=== PATIENT | male | born 1945 | race Caucasian/White ===

== ENCOUNTER 2020-12-25 10:22 | Outpatient (REF) | payer MEDICARE, SELFPAY ==
--- NOTE | ~2020-12-25 | XR_ITS ---
EXAMINATION: XR ANKLE, RIGHT XR ANKLE, LEFT CLINICAL INFORMATION: Ankle pain. COMPARISON: None. TECHNIQUE: AP, mortise, and lateral views of the right and left ankle. FINDINGS: Right Ankle: No acute fracture or dislocation. The ankle mortise is maintained. Small tibiotalar marginal osteophytes. Mild degenerative spurring at the dorsal midfoot. Joint space narrowing with marginal osteophytes at the posterior subtalar joint. Prominent plantar calcaneal spur. Mild circumferential soft tissue swelling. Left Ankle: No acute fracture or dislocation. Degenerative joint space narrowing with small marginal osteophytes. Severe posterior subtalar joint space narrowing with subchondral sclerosis, bony remodeling, and large marginal osteophytes. Plantar calcaneal spur. Mild circumferential soft tissue swelling. 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 Mild degenerative spurring at the dorsal midfoot. Plantar calcaneal spur. Circumferential soft tissue swelling. 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 Plantar calcaneal spur. Circumferential soft tissue swelling.
--- NOTE | ~2020-12-25 | XR_ITS ---
EXAMINATION: XR ANKLE, RIGHT XR ANKLE, LEFT CLINICAL INFORMATION: Ankle pain. COMPARISON: None. TECHNIQUE: AP, mortise, and lateral views of the right and left ankle. FINDINGS: Right Ankle: No acute fracture or dislocation. The ankle mortise is maintained. Small tibiotalar marginal osteophytes. Mild degenerative spurring at the dorsal midfoot. Joint space narrowing with marginal osteophytes at the posterior subtalar joint. Prominent plantar calcaneal spur. Mild circumferential soft tissue swelling. Left Ankle: No acute fracture or dislocation. Degenerative joint space narrowing with small marginal osteophytes. Severe posterior subtalar joint space narrowing with subchondral sclerosis, bony remodeling, and large marginal osteophytes. Plantar calcaneal spur. Mild circumferential soft tissue swelling. 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 Mild degenerative spurring at the dorsal midfoot. Plantar calcaneal spur. Circumferential soft tissue swelling. 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 Plantar calcaneal spur. Circumferential soft tissue swelling.
[2020-12-25 10:53] LABS: MANUAL DIFF FLAG NO
[2020-12-25 11:02] LABS: Basophils Absolute Auto 0.1 X10*3/uL (0.0-0.2); Basophils Percent Auto 0.7 % (0-2); Eosinophils Absolute Auto 0.4 X10*3/uL (0.0-0.4); Eosinophils Percent Auto 5.3 % (0-4); Hematocrit 51.5 % (42-52); Hemoglobin 17.6 g/dl (14.0-18.0); Imm Gran Abs Auto 0.02 X10*3/uL (0.00-0.03); Imm Gran Pct Auto 0.3 % (0.0-0.4); Lymphocytes Percent Auto 27.6 % (20-40); Mean Corpuscular HGB Conc 34.2 g/dl (31.0-36.0); Mean Corpuscular Hemoglobin 32.5 pg (27.0-33.0); Mean Platelet Volume 10.9 fL (9.4-12.4); Monocytes Absolute Auto 0.9 X10*3/uL (0.1-1.2); Monocytes Percent Auto 12.7 % (2-11); Neutrophils Percent Auto 53.4 % (45-73); Platelet Count 191 X10*3/uL (160-400); Red Blood Count 5.42 X10*6/uL (4.60-5.80); Red Cell Distribution Width 12.7 % (11.0-16.0); White Blood Count 7.4 X10*3/uL (4.8-10.8)
[2020-12-25 11:37] LABS: Alanine Aminotransferase 26 U/L (0-40); Albumin Level 3.9 g/dL (3.5-5.0); Alkaline Phosphatase 62 U/L (39-117); Anion Gap 13 (12-20); Aspartate Amino Transferase 21 U/L (5-37); Bilirubin Total 1.3 mg/dL (0.0-1.0); Blood Urea Nitrogen 11 mg/dL (9-16); Carbon Dioxide 26 mmol/L (22-29); Chloride 107 mmol/L (96-108); Cholesterol 190 mg/dL; Estimated Glomerular Filt Rate > 60; Glucose Fasting 115 mg/dL (60-99); HDL Cholesterol 44 mg/dL; LDL Cholesterol Calculated 113 mg/dl; Potassium 4.6 mmol/L (3.3-5.1); Sodium 141 mmol/L (135-145); Total Protein 6.9 g/dL (6.5-8.0); Triglycerides 168 mg/dL
[2020-12-25 11:43] LABS: Free T4 (Free Thyroxine) 0.77 ng/dL (0.71-1.85); Thyroid Stimulating Hormone 1.83 uIU/mL (0.32-4.0)
[2020-12-25 12:02] LABS: Folate 14.9 ng/mL (> or = 4.0); Vitamin B12 522 pg/mL (200-900)
== END 2020-12-25 10:23 | disposition home or self-care (01) ==
LOC: HO.LAB 10:22
PROVIDERS: PCP Internal Medicine; Visit Provider Internal Medicine
DX: Z12.5 Encounter for screening for malignant neoplasm of prostate (principal); M54.2 Cervicalgia; I48.91 Unspecified atrial fibrillation; I10 Essential (primary) hypertension; G62.9 Polyneuropathy, unspecified; K52.9 Noninfective gastroenteritis and colitis, unspecified; R35.1 Nocturia; M25.572 Pain in left ankle and joints of left foot; M25.571 Pain in right ankle and joints of right foot
CPT/HCPCS: 36415; 73610; 80053; 80061; 82607; 82746; 84153; 84439; 84443; 85025

== ENCOUNTER → 2021-01-13 10:27 | Outpatient (BNVA) | payer MEDICARE, SELFPAY | PROVIDERS: PCP Internal Medicine; Visit Provider Physician Assistant | DX: M19.072 Primary osteoarthritis, left ankle and foot (principal) | CPT/HCPCS: 99202 ==

== ENCOUNTER 2021-03-10 14:00 | Outpatient (RCR) | payer MEDICARE, SELFPAY ==
--- NOTE | 2021-02-02 11:34 | MHC.PT.EP ---
[facility] [place] Office [place] Office [place] Office [address] [phone] F: [phone] F: [phone] F: [phone] F: [phone] Physical Therapy Plan of Care Date of Evaluation: Date of Surgery: NA Diagnosis: LEFT FOOT AND ANKLE Assessment: Rasheed is a pleasant 75 yo gentleman who presents with increasing foot and ankle pain along with peripheral neuropathy. Upon exam he demostrates decreased foot and ankle mobility, decreased strength of ankle stabilizers and foot intrinsics, altered gait pattern and decreased balance. Upon exam he demonstrates altered posture and positoning of foot and ankle, decreased ability to perform standing and walking activities, decreased ability to perform stairs, decreased ability to participate in recreational and community activities. A pt is a good candidate for skilled PT due to age, potential remediation of impairments, typical disease/condition progression and prognosis, comorbidities, and motivation. pt would benefit from tailored program of therapeutic activities, functional training, gait training, postural education, neuromuscular re-education, and modalities as needed. Frequency and Duration: The patient will be seen 2 x week for 4 weeks Short Term Goals: initiate HEP and promote self management of symptoms in 2 weeks [employer] Goals: IN 6 WEEKS: TO DEMONSTRATE FULL ANKLE ROM, EQUAL ISIAH TO DEMONSTRATE FULL LE STRENGTH, EQUAL ISIAH TO ASCEND AND DESCEND STAIRS WITHOUT PAIN GREATER THAN 2/10 TO AMBULATE AD YOLANDA ON LEVEL AND UNEVEN SURFACES FOR FITNESS WITHOUT PAIN GREATER THAN 2/10 Treatment Plan: Modalities to reduce pain, spasms and effusion. Manual therapy to restore motion and function. Therapeutic exercise to improve strength and flexibility. Neuromuscular re-education for posture and balance. Therapeutic activities to return to functional activities of daily living. Electronically signed by: KRISTA HANSEN PT, DPT Please sign and return to therapist. Thank you for your referral.
--- NOTE | 2021-03-10 14:47 | MHC.PT.DC ---
[facility] [place] Office [place] Office [place] Office [address] M[address] [phone] F: [phone] F: [phone] F: [phone] F: [phone] Physical Therapy Discharge Report Diagnosis: LEFT FOOT AND ANKLE Date of Surgery: NA Date of Evaluation: 01/30/21 Date of Discharge: 03/10/21 Treatments to Date: 9 Cancellations to Date: 1 No Shows to Date: 0 Discharge Status: Achieved Goals Improved Function Independent with HEP Discharge Summary: feels confident with HEP and self management of symptoms. He will be leaving for vacation in a few weeks and feels confident with DC on this date Electronically signed by: Krista Tesfaye PT, DPT Please sign and return to therapist. Thank you for your referral.
== END 2021-03-10 14:48 | disposition home or self-care (01) ==
LOC: HO.PT 14:00
PROVIDERS: PCP Internal Medicine; Visit Provider Physician Assistant
DX: M19.072 Primary osteoarthritis, left ankle and foot (principal)
CPT/HCPCS: 97035; 97110; 97140; 97162

== ENCOUNTER 2021-09-09 06:28 | Day surgery (SDC) | payer MEDICARE, SELFPAY ==
[2021-09-03 11:00] VITALS: BMI 45.8
--- NOTE | 2021-09-08 12:35 | P.CONAN_ITS ---
Documented by User: Suzette Barton NP 09/08/21 12:39 HPI - Anesthesia Eval Consult details Narrative: 76yo M for Colonoscopy PMFSH Active Problems Active Problems: All Active Problems (Updated 09/03/21 @ 11:00 by Laura Mackey RN) Osteoarthritis of ankle, left (Acute) Past Medical History Medical History (Updated 09/03/21 @ 11:00 by Laura Mackey RN) Anomalous pulmonary venous drainage Atrial fibrillation Fracture of phalanx of right ring finger Neuropathy Surgical History Surgical History (Updated 09/03/21 @ 10:51 by Laura Mackey RN) H/O colonoscopy History of bilateral knee replacement History of hernia surgery History of repair of hiatal hernia Hx of Achilles tendon repair Social History Social History (Updated 09/03/21 @ 10:51 by Laura Mackey RN) Are you a primary rental boats caretaker to a significant other at home: No Do you presently have visiting nurse or other home services: No Patient Tobacco Use Status: Never used Tobacco Use of substances other than those prescribed or required for medical reasons: No Have you been hit, kicked, punched, or otherwise hurt by someone within the past year? If so, by whom?: No Are you DNR?: No Advance Directives Information Provided: Yes (brochure mailed) Advance Directives on File: No Recently lost weight without trying: No Eating poorly because of decreased appetite: No Nutrition Risks: Surgical patient >75years Current occupational status: retired Current occupation: rt handed Meds Allergies Allergy/AdvReac Type Severity Reaction Status Date / Time No Known Allergies Allergy Unverified 12/27/19 15:09 [No Known Allergies*] Home Medications Medication Instructions Recorded Confirmed Last Taken Type brimonidine 0.2 % eye drops 1 drp BID 09/03/21 09/09/21 Unknown History metoprolol tartrate 50 mg tablet 1 tab PO BID 09/03/21 09/09/21 09/09/21 History Exam Exam Date and Time: September 08, 2021 1235 Height,Weight and Vital Signs: Height 6 ft Weight 153.314 kg Assessment and Plan Assessment Anesthesia Assessment: Chart Reviewed Documented by User: Amaris Calixto MD 09/09/21 07:43 PMF Active Problems Active Problems: All Active Problems (Updated 09/03/21 @ 11:00 by Laura Mackey RN) Osteoarthritis of ankle, left (Acute) Snores but never tested for KALI Past Medical History Medical History (Updated 09/03/21 @ 11:00 by Laura Mackey RN) Anomalous pulmonary venous drainage Atrial fibrillation Fracture of phalanx of right ring finger Neuropathy Family History Family history of problems with anesthesia: No Surgical History Surgical History (Updated 09/03/21 @ 10:51 by Laura Mackey RN) H/O colonoscopy History of bilateral knee replacement History of hernia surgery History of repair of hiatal hernia Hx of Achilles tendon repair History of Problems with Anesthesia: No Social History Social History (Updated 09/03/21 @ 10:51 by Laura Mackey RN) Are you a primary rental boats caretaker to a significant other at home: No Do you presently have visiting nurse or other home services: No Patient Tobacco Use Status: Never used Tobacco Use of substances other than those prescribed or required for medical reasons: No Have you been hit, kicked, punched, or otherwise hurt by someone within the past year? If so, by whom?: No Are you DNR?: No Advance Directives Information Provided: Yes (brochure mailed) Advance Directives on File: No Recently lost weight without trying: No Eating poorly because of decreased appetite: No Nutrition Risks: Surgical patient >75years Current occupational status: retired Current occupation: rt handed Meds Allergies Allergy/AdvReac Type Severity Reaction Status Date / Time No Known Allergies Allergy Unverified 12/27/19 15:09 [No Known Allergies*] Home Medications Medication Instructions Recorded Confirmed Last Taken Type brimonidine 0.2 % eye drops 1 drp BID 09/03/21 09/09/21 Unknown History metoprolol tartrate 50 mg tablet 1 tab PO BID 09/03/21 09/09/21 09/09/21 History Exam Height,Weight and Vital Signs: Height 6 ft Weight 153.314 kg Vital Signs Temp Pulse Resp BP Pulse Ox 09/09/21 07:15 97.0 F 93 18 158/90 H 96 Airway Mallampati Class: III TM Dist: >3cm Neck ROM: Full Loose/Missing/Broken Teeth: No Heart: Irregularly irregular Lungs: CTAB Assessment and Plan Assessment Anesthesia Assessment: Anesthesia Plan Discussed Final Anesthetic Review Family History of Problems with Anesthesia: No History of Problems with Anesthesia: No NPO: Yes ASA Class: III Final Preanesthetic Review: No Changes in Pt Med Stat, Meds/Allgs Chart Reviewed, Consent Obtained/Reviewed and Anes Risks/Benef Reviewed Patient Risk: Intermediate Procedure Risk: Low Assessment/Block/Sedation in SS: Assess/Block/Sedation-SS Anesthetic Plan Anesthetic Plan: GA and MAC: Disposition: Standard PACU
[2021-09-09 07:15] VITALS: BP 158/90; PULSE 93; RESP 18; TEMP 36.1; O2SAT 96
[2021-09-09] MEDS: Lactated Ringers 1,000 ML 100 ML IVCONT (07:18)
--- NOTE | 2021-09-09 09:04 | PM.OP ---
Brief Operative Note Date of Service: 09/09/21 Pre-op diagnosis: Screening Post-op diagnosis: other (Colon polyps) Procedure: Colonoscopy to the cecum with bx/removal of appendiceal orifice polyp, hot snare polypectomy x 3, and placement of 1 Resolution clip at 50cm Surgeon: Pollo Lo Anesthesia: MAC Was an Dye Colorist Formulator used for this Procedure?: No Estimated blood loss (mL): 2.0 Pathology: other (A. Appendiceal orifice polyp B.Transverse colon polyp C. Polyps at 50cm) Condition: stable Disposition: PACU
[2021-09-09 09:08] VITALS: BP 127/81; PULSE 114; RESP 18; TEMP 36.1; O2SAT 95
[2021-09-09 09:13] VITALS: BP 110/57; PULSE 110; RESP 18; O2SAT 96
[2021-09-09 09:18] VITALS: BP 95/55; PULSE 108; RESP 16; O2SAT 95
[2021-09-09 09:23] VITALS: BP 108/68; PULSE 106; RESP 18; O2SAT 93
[2021-09-09 09:38] VITALS: BP 108/72; PULSE 96; RESP 18; TEMP 36.1; O2SAT 94
--- NOTE | 2021-09-09 10:47 | OP_ITS ---
SURGEON: Pollo Lo MD INDICATIONS: The patient presents for evaluation of colorectal cancer screening and prior history of tubular adenoma of the colon. Full consent was obtained from him for this, including risks of bleeding and perforation. PREOPERATIVE DIAGNOSIS: POSTOPERATIVE DIAGNOSIS: PROCEDURE PERFORMED: Colonoscopy to the cecum with biopsy and removal of polyp,, and hot snare polypectomy with placement of 1 Resolution clip. ESTIMATED BLOOD LOSS: COMPLICATIONS: ANESTHESIA: Monitored anesthesia care. ASSISTANTS: SPECIMENS: PREOPERATIVE DIAGNOSES: Colorectal cancer screening, personal history of tubular adenoma of the colon, family history of colon cancer. POSTOPERATIVE DIAGNOSES: Colorectal cancer screening, personal history of tubular adenoma of the colon, family history of colon cancer, colon polyps, diverticulosis and internal hemorrhoids. DESCRIPTION OF PROCEDURE: The patient was placed in the left lateral decubitus position. The digital rectal exam revealed no abnormalities. The [employer] video pediatric colonoscope was entered into the rectum and advanced to the cecum. Once in the cecum, I did identify cecal pouch with appendiceal orifice and a normal-appearing ileocecal valve. The ileocecal valve appeared normal. The entire cecum was well visualized. In the appendiceal orifice was a flat several mm polypoid lesion, which was biopsied twice with cold biopsy forceps and removed. The remainder of the cecum appeared normal. The scope was then slowly withdrawn assessing all mucosal surfaces carefully. Preparation was excellent. In the transverse colon was an approximately 6 to 8 mm polyp, which was removed with hot snare polypectomy and recovered by suction. The polypectomy site appeared clean, without any sign of residual polyp nor bleeding. At 50 cm were 2 polyps between 8 and 10 mm, which were both removed by hot snare polypectomy. One was recovered by suction and the other was recovered by withdrawing on the tip of the scope. They were placed in the same container. The scope was advanced back to the polypectomy site. Both polypectomy sites appeared clean, without any sign of residual polyp nor bleeding, although I did place 1 Resolution clip on 1 of the polypectomy sites with good deployment and good hemostasis. I did not visualize any other polyps, colitis, or angiodysplasia. There was a mild amount of sigmoid diverticulosis. In the rectum, the scope was retroflexed visualizing small internal hemorrhoids, but no other pathology. The rectal mucosa appeared normal. The scope was straightened and withdrawn from the patient. He tolerated the procedure well and was returned to the recovery area in stable condition. IMPRESSION: 1. Colon polyps. 2. Diverticulosis. 3. Internal hemorrhoids. PLAN: The results of the pathology will be checked. Given his age and today's relatively minimal findings, I do not think he will need any further screening colonoscopies in the future. He was advised not to use any aspirin and NSAIDs for 1 week. He will otherwise see me on a p.r.n. basis. Of note, for future reference, his airway and respiratory status were well- maintained by the anesthesia staff during this MAC case. However, at times it was quite challenging due to his anatomy. Therefore, I would recommend General Anesthesia be used if he were to need any further GI procedures. The anesthesia staff agreed with this assessment as well. MD TOMMY Kovacs/ROBERTA / [id number] MTDD
== END 2021-09-09 10:40 | disposition home or self-care (01) ==
PROVIDERS: PCP Internal Medicine; Visit Provider Internal Medicine
PROC: 0DJD8ZZ Inspection of Lower Intestinal Tract, Via Natural or Artificial Opening Endoscopic (ICD-10-PCS; CPT 45378; principal; 2021-09-09 07:30)
DX: Z12.11 Encounter for screening for malignant neoplasm of colon (principal); Z86.010 Personal history of colon polyps; Z80.0 Family history of malignant neoplasm of digestive organs; D12.3 Benign neoplasm of transverse colon; D12.5 Benign neoplasm of sigmoid colon; K51.40 Inflammatory polyps of colon without complications; K57.30 Diverticulosis of large intestine without perforation or abscess without bleeding; K64.8 Other hemorrhoids; G57.90 Unspecified mononeuropathy of unspecified lower limb; I48.91 Unspecified atrial fibrillation; Z79.899 Other long term (current) drug therapy; Z96.653 Presence of artificial knee joint, bilateral
CPT/HCPCS: 45385; 45380; 88305; J2250; J2370; J2765

== ENCOUNTER 2022-08-23 09:14 | Outpatient (REF) | payer MEDICARE, SELFPAY ==
[2022-08-23 09:39] LABS: MANUAL DIFF FLAG NO
[2022-08-23 10:16] LABS: Basophils Absolute Auto 0.1 X10*3/uL (0.0-0.2); Basophils Percent Auto 1.1 % (0-2); Eosinophils Absolute Auto 0.3 X10*3/uL (0.0-0.4); Eosinophils Percent Auto 4.8 % (0-4); Hematocrit 49.9 % (42.0-52.0); Hemoglobin 17.2 g/dl (14.0-18.0); Imm Gran Abs Auto 0.02 X10*3/uL (0.00-0.03); Imm Gran Pct Auto 0.3 % (0.0-0.4); Lymphocytes Absolute Auto 1.3 X10*3/uL (1.2-4.9); Lymphocytes Percent Auto 21.5 % (20-40); Mean Corpuscular HGB Conc 34.5 g/dl (31.0-36.0); Mean Corpuscular Hemoglobin 32.8 pg (27.0-33.0); Mean Platelet Volume 10.9 fL (9.4-12.4); Monocytes Absolute Auto 0.8 X10*3/uL (0.1-1.2); Monocytes Percent Auto 13.1 % (2-11); Neutrophils Absolute Auto 3.7 x10*3/uL (2.0-8.3); Neutrophils Percent Auto 59.2 % (45-73); Platelet Count 160 X10*3/uL (160-400); Red Blood Count 5.25 X10*6/uL (4.60-5.80); Red Cell Distribution Width 13.3 % (11.0-16.0); White Blood Count 6.2 X10*3/uL (4.8-10.8)
[2022-08-23 10:39] LABS: Estimated Average Glucose 117 mg/dL; Hemoglobin A1c % 5.7 %
[2022-08-23 10:59] LABS: Alanine Aminotransferase 21 U/L (0-40); Albumin Level 3.5 g/dL (3.5-5.0); Alkaline Phosphatase 68 U/L (39-117); Anion Gap 14 (12-20); Aspartate Amino Transferase 16 U/L (5-37); Bilirubin Total 0.9 mg/dL (0.0-1.0); Blood Urea Nitrogen 12 mg/dL (9-16); Calcium 8.9 mg/dL (8.4-10.2); Carbon Dioxide 25 mmol/L (22-29); Chloride 106 mmol/L (96-108); Cholesterol 179 mg/dL; Estimated Glomerular Filt Rate > 60; Glucose Random 99 mg/dL (60-115); HDL Cholesterol 43 mg/dL; LDL Cholesterol Calculated 103 mg/dl; Potassium 4.5 mmol/L (3.3-5.1); Sodium 140 mmol/L (135-145); Total Protein 6.4 g/dL (6.5-8.0); Triglycerides 168 mg/dL
[2022-08-23 11:28] LABS: Folate 7.4 ng/mL (> or = 4.0); Prostate Specific Antigen 0.89 ng/mL (<0.05-4.0); Vitamin B12 461 pg/mL (200-900)
[2022-08-23 11:34] LABS: Appearance Urine Clear; Color Urine Yellow; Glucose Urine UA Negative (Negative); Leukocyte Esterase Urine Negative (Negative); Nitrite Urine Negative (Negative); Specific Gravity - Urine 1.015 (1.005-1.025); UMIC TRIGGER UA YES; Urine Blood Trace (Negative); Urine Ketones Negative (Negative); Urine Protein Trace mg/dL (Neg-Trace)
[2022-08-23 11:37] LABS: Bacteria Urine None Seen (None Seen); Hyaline Casts Urine 0-2 /LPF (0-2); RBC Urine 0-2 /HPF (0-2); Squamous Epithelial Cell Urine 0-2 /HPF (0-2); WBC Urine 0-5 /HPF (0-5)
[2022-08-23 12:02] LABS: Creatinine Urine 109.88 mg/dL; Microalbum/Creatinine Ratio Ur 66.4 ug/mg cr
== END 2022-08-23 09:15 | disposition home or self-care (01) ==
LOC: HO.LAB 09:14
PROVIDERS: PCP Internal Medicine; Visit Provider Internal Medicine
DX: Z12.5 Encounter for screening for malignant neoplasm of prostate (principal); I48.91 Unspecified atrial fibrillation; R73.03 Prediabetes; M19.90 Unspecified osteoarthritis, unspecified site; R35.1 Nocturia; G62.9 Polyneuropathy, unspecified
CPT/HCPCS: 36415; 80053; 80061; 81001; 82043; 82607; 82746; 83036; 84153; 85025

== ENCOUNTER 2022-11-22 10:48 | Outpatient (REF) | payer MEDICARE, SELFPAY ==
[2022-11-22 11:17] LABS: MANUAL DIFF FLAG NO
[2022-11-22 11:25] LABS: Basophils Absolute Auto 0.1 X10*3/uL (0.0-0.2); Eosinophils Absolute Auto 0.4 X10*3/uL (0.0-0.4); Eosinophils Percent Auto 5.7 % (0-4); Hematocrit 48.3 % (42.0-52.0); Hemoglobin 16.8 g/dl (14.0-18.0); Imm Gran Abs Auto 0.03 X10*3/uL (0.00-0.03); Imm Gran Pct Auto 0.4 % (0.0-0.4); Lymphocytes Absolute Auto 1.8 X10*3/uL (1.2-4.9); Lymphocytes Percent Auto 25.3 % (20-40); Mean Corpuscular HGB Conc 34.8 g/dl (31.0-36.0); Mean Corpuscular Hemoglobin 33.3 pg (27.0-33.0); Mean Corpuscular Volume 95.8 fL (80.0-98.0); Mean Platelet Volume 10.9 fL (9.4-12.4); Monocytes Percent Auto 14.5 % (2-11); Neutrophils Absolute Auto 3.7 x10*3/uL (2.0-8.3); Neutrophils Percent Auto 53.1 % (45-73); Platelet Count 173 X10*3/uL (160-400); Red Blood Count 5.04 X10*6/uL (4.60-5.80); Red Cell Distribution Width 12.7 % (11.0-16.0)
[2022-11-22 11:52] LABS: Estimated Average Glucose 120 mg/dL; Hemoglobin A1c % 5.8 %
[2022-11-22 11:55] LABS: Alanine Aminotransferase 30 U/L (0-40); Albumin Level 3.4 g/dL (3.5-5.0); Alkaline Phosphatase 55 U/L (39-117); Anion Gap 10 (12-20); Aspartate Amino Transferase 26 U/L (5-37); Bilirubin Total 0.6 mg/dL (0.0-1.0); Blood Urea Nitrogen 14 mg/dL (9-16); Calcium 9.2 mg/dL (8.4-10.2); Carbon Dioxide 27 mmol/L (22-29); Chloride 107 mmol/L (96-108); Estimated Glomerular Filt Rate > 60; Glucose Random 102 mg/dL (60-115); Magnesium 1.9 mg/dL (1.6-2.6); Potassium 4.5 mmol/L (3.3-5.1); Sodium 139 mmol/L (135-145); Total Protein 6.9 g/dL (6.5-8.0)
== END 2022-11-22 10:49 | disposition home or self-care (01) ==
LOC: HO.10HDL 10:48
PROVIDERS: Visit Provider Internal Medicine
DX: I48.91 Unspecified atrial fibrillation (principal); R73.03 Prediabetes; M19.90 Unspecified osteoarthritis, unspecified site; D72.820 Lymphocytosis (symptomatic)
CPT/HCPCS: 36415; 80053; 83036; 83735; 85025

== ENCOUNTER 2023-02-24 10:36 | Outpatient (REF) | payer MEDICARE, SELFPAY ==
--- NOTE | ~2023-02-24 | XR_ITS ---
EXAMINATION: XR ANKLE, LEFT CLINICAL INFORMATION: Pain. COMPARISON: Radiographs dated 12/25/2020. TECHNIQUE: AP, lateral, and mortise views of the left ankle. FINDINGS: There is bony demineralization. The ankle mortise is intact. No fracture, dislocation or left ankle joint effusion is seen. Boehler's angle is normal. There is a moderate plantar calcaneal spur. There is mild generalized soft tissue swelling of the ankle, without gas or foreign body noted. There are atherosclerotic calcifications. XR/XR ankle LT min 3V IMPRESSION: 1. No left ankle fracture, dislocation or joint effusion is seen. 2. There is mild generalized soft tissue swelling. 3. There is a moderate plantar calcaneal spur.
== END 2023-02-24 10:37 | disposition home or self-care (01) ==
LOC: HO.XRAY 10:36
PROVIDERS: PCP Internal Medicine; Visit Provider Internal Medicine
DX: M25.572 Pain in left ankle and joints of left foot (principal)
CPT/HCPCS: 73610

== ENCOUNTER 2023-09-08 08:37 | Outpatient (REF) | payer MEDICARE, SELFPAY ==
[2023-09-08 08:56] LABS: MANUAL DIFF FLAG NO
[2023-09-08 09:28] LABS: Appearance Urine Clear; Color Urine Yellow; Glucose Urine UA Negative (Negative); Leukocyte Esterase Urine Negative (Negative); Nitrite Urine Negative (Negative); Urine Blood Negative (Negative); Urine Ketones Negative (Negative); Urine Protein Negative (Neg-Trace)
[2023-09-08 09:30] LABS: Basophils Absolute Auto 0.1 X10*3/uL (0.0-0.2); Basophils Percent Auto 0.9 % (0-2); Eosinophils Absolute Auto 0.3 X10*3/uL (0.0-0.4); Eosinophils Percent Auto 5.5 % (0-4); Hemoglobin 17.1 g/dl (14.0-18.0); Imm Gran Abs Auto 0.05 X10*3/uL (0.00-0.03); Imm Gran Pct Auto 0.9 % (0.0-0.4); Lymphocytes Absolute Auto 1.6 X10*3/uL (1.2-4.9); Lymphocytes Percent Auto 27.6 % (20-40); Mean Corpuscular HGB Conc 34.2 g/dl (31.0-36.0); Mean Corpuscular Hemoglobin 32.9 pg (27.0-33.0); Mean Corpuscular Volume 96.2 fL (80.0-98.0); Mean Platelet Volume 11.4 fL (9.4-12.4); Monocytes Absolute Auto 0.7 X10*3/uL (0.1-1.2); Monocytes Percent Auto 11.8 % (2-11); Neutrophils Absolute Auto 3.1 x10*3/uL (2.0-8.3); Neutrophils Percent Auto 53.3 % (45-73); Platelet Count 165 X10*3/uL (160-400); Red Cell Distribution Width 12.6 % (11.0-16.0); White Blood Count 5.8 X10*3/uL (4.8-10.8)
[2023-09-08 09:56] LABS: Estimated Average Glucose 131 mg/dL; Hemoglobin A1c % 6.2 % (<6.0)
[2023-09-08 10:01] LABS: Creatinine Urine 132.06 mg/dL; Microalbum/Creatinine Ratio Ur 21.2 ug/mg cr (<30)
[2023-09-08 10:03] LABS: Alanine Aminotransferase 24 U/L (0-40); Albumin Level 3.6 g/dL (3.5-5.0); Alkaline Phosphatase 60 U/L (39-117); Anion Gap 13 (12-20); Aspartate Amino Transferase 18 U/L (5-37); Bilirubin Total 0.8 mg/dL (0.0-1.0); Blood Urea Nitrogen 10 mg/dL (9-16); Calcium 8.7 mg/dL (8.4-10.2); Carbon Dioxide 27 mmol/L (22-29); Chloride 106 mmol/L (96-108); Cholesterol 188 mg/dL (<200); Estimated Glomerular Filt Rate > 60; Glucose Fasting 107 mg/dL (60-99); HDL Cholesterol 47 mg/dL (>40); LDL Cholesterol Calculated 101 mg/dL (<100); Potassium 4.5 mmol/L (3.3-5.1); Sodium 141 mmol/L (135-145); Total Protein 6.9 g/dL (6.5-8.0); Triglycerides 201 mg/dL (<150)
[2023-09-08 10:13] LABS: Prostate Specific Antigen 1.05 ng/mL (<0.05-4.0)
== END 2023-09-08 08:38 | disposition home or self-care (01) ==
LOC: HO.LAB 08:37
PROVIDERS: PCP Internal Medicine; Visit Provider Internal Medicine
DX: I48.91 Unspecified atrial fibrillation (principal); I10 Essential (primary) hypertension; N40.0 Benign prostatic hyperplasia without lower urinary tract symptoms; E11.9 Type 2 diabetes mellitus without complications; Z12.5 Encounter for screening for malignant neoplasm of prostate
CPT/HCPCS: 36415; 80053; 80061; 81003; 82043; 82570; 83036; 84153; 85025

== ENCOUNTER 2024-09-12 11:25 | Outpatient (AMB) | payer MEDICARE, SELFPAY ==
--- NOTE | 2024-09-12 10:32 | A.OFFPC_ITS ---
Vital Signs 09/12/24 11:33 Height 6 ft Weight 234 lb BMI 31.7 BP 130/82 Blood Pressure Location Lt brachial Position Sitting Pulse 77 Pulse Source Pulse Oximeter Temp 97 F Temp Source Axillary Pulse Oximetry (%) 96 Oxygen Delivery Method Room Air Intake Visit Reasons: Routine Mental Health Coordinator Required: No Accompanied by: Self / Same As Patient Allergies No Known Allergies [No Known Allergies*] Allergy (Verified 09/12/24 10:32) Tobacco use date assessed: 09/12/24 Fall risk assessment: 1 Fall in past year Last assessed Fall Risk: 09/12/24 Dental Screening Dental Screen Date: 09/12/24 Did you have a dental visit in the last 12 months?: Yes Did you have a dental problem in the last 6 months where you did not have access to dental care?: No [facility] Medical History (Updated 09/12/24 @ 11:51 by Thee Delacruz MD) Obesity (BMI 35.0-39.9 without comorbidity) Atrial fibrillation Neuropathy Anomalous pulmonary venous drainage Fracture of phalanx of right ring finger Surgical History History of repair of hiatal hernia Hx of Achilles tendon repair H/O colonoscopy (~09/09/21) History of hernia surgery History of bilateral knee replacement Family History (Updated 09/12/24 @ 11:38 by Lynette Butts MA) Mother No problems noted. Father No problems noted. Social History Housing: House Are you a primary home health care worker to a significant other at home: No Do you presently have visiting nurse or other home services: No Patient Tobacco Use Status: Never used Tobacco e-Cigarette/Vaping Use: Never Used service: No Current occupational status: retired Current occupation: rt handed Cognitive needs: No Hearing needs: No Vision needs: Yes (rx glasses) Questionnaire PHQ-9 Over the last 2 weeks, how often have you been bothered by any of the following problems? 1. Little interest or pleasure in doing things: not at all 2. Feeling down, depressed, or hopeless: not at all 3. Trouble falling or staying asleep, or sleeping too much: not at all 4. Feeling tired or having little energy: not at all 5. Poor appetite or overeating: not at all 6. Feeling bad about yourself - or that you are a failure or have let yourself or your family down: not at all 7. Trouble concentrating on things, such as reading the newspaper or watching television: not at all 8. Moving or speaking so slowly that other people could have noticed. Or the opposite - being so fidgety or restless that you have been moving around a lot more than usual: not at all 9. Thoughts that you would be better off or of hurting yourself in some way: not at all Total score: 0 Source: Developed by Drs. Pollo Hunt, Niyah Back, Prasanth Becerril and colleagues, with an educational meme from [employer]. Thrive Questionnaire Date Thrive assessed: 09/12/24 I am a: Patient Within the past 12 months, did the food you bought not last and you didn't have the money to get more?: Never true Within the past 12 months, did you worry whether your food would run out before you got money to buy more?: Never true Do you have trouble paying for medicines?: No Do you have trouble getting transportation to medical appointments?: No Do you have trouble paying your heating and electricity bill?: No Do you have trouble taking care of your child, family member or friend?: No Do you have trouble with day-to-day activities such as bathing, preparing meals, shopping, managing finances, etc.?: No Are you currently unemployed and looking for a job?: No Are you interested in more education?: No THRIVE Score: 0 AUDIT C Alcohol Use Questionnaire (AUDIT-C) 1. How often do you have a drink containing alcohol?: Monthly or less 2. How many drinks containing alcohol do you have on a typical day when you are drinking?: 1 or 2 3. How often do you have six or more drinks on one occasion?: Less than monthly Total Score: 2 NOLAN-7 AMB Questionnaire NOLAN-7 Date NOLAN - 7 assessed: 09/12/24 Feeling nervous, anxious, or on edge: 0 = Not at all Not being able to stop or control worryin = Not at all Worrying too much about different things: 0 = Not at all Trouble relaxin = Not at all Being so restless that it is hard to sit still: 0 = Not at all Becoming easily annoyed or irritable: 0 = Not at all Feeling afraid as if something awful might happen: 0 = Not at all Total NOLAN-7 score (0-4 normal; 5-9 mild; 10-14 moderate; 15-21 severe): 0 Source: Developed by Drs. Pollo Hunt, Niyah Back, Prasanth Becerril and colleagues, with an educational meme from [employer]. Physical exam (Primary Care) Vital Signs: Last Vital Signs Temp 97 F 09/12/24 11:33 Pulse 77 09/12/24 11:33 BP 130/82 09/12/24 11:33 Pulse Ox 96 09/12/24 11:33 Oxygen Delivery Method Room Air 09/12/24 11:33 BMI result Body Mass Index 31.7 Tobacco/Smoking Status: Tobacco use Status Tobacco use date assessed 09/12/24 09/12/24 10:34 Patient Tobacco Use Status Never used Tobacco 09/12/24 10:32 e-Cigarette/Vaping Use Never Used 09/12/24 10:34 PHQ-9: PHQ-9 Score PHQ-9: Total score 0 09/12/24 11:38 Thrive Assessment: Date of Thrive Assessment Date Thrive assessed 09/12/24 09/12/24 10:34 Coding Level of Care Code New Pt Level 4 (24136) Complex EM visit Add On G2211 Diagnoses Atrial fibrillation I48.91 Obesity (BMI 35.0-39.9 without comorbidity) E66.9 Assessment & Plan Assessment & Plan (1) Atrial fibrillation: Code(s): I48.91 - Unspecified atrial fibrillation Category: Medical Plan: on blood thinner and beta melissa (2) Obesity (BMI 35.0-39.9 without comorbidity): Code(s): E66.9 - Obesity, unspecified Category: Medical Plan: Counselling on diet and exercise done Plan History of Present Illness - The patient is a 79-year-old male presenting with concerns about obesity and urinary symptoms. - Reports issues with weight contributing to discomfort in knees, linked to past bilateral knee replacements. Surgery occurred about eight or nine years ago. - Historically active, now less so for the past decade, aware of the necessity to lose weight. - Experiences increased frequency and urgency of urination, particularly during the day, with limited output; rises at night two times for urination. - Has noted previously elevated blood glucose levels. - Currently on metoprolol and Eliquis for hypertension and atrial fibrillation. - Regularly consults early breastfeeding care specialist and barometers calibrator. - Daily consumption of wine is noted, specifically two glasses with dinner. 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 - Reports a significant decrease in physical activity over the last ten years. - Never smoked; does drink wine nightly, typically two glasses with his meal. Review of Systems - Genitourinary: Reports increased frequency and urgency of urination, with limited volume and nighttime awakening for urination. - Musculoskeletal: Denies knee pain but experiences discomfort associated with weight. - Cardiovascular: Reports history of atrial fibrillation and hypertension. - Endocrine: Reports previous elevation in blood glucose levels. Physical Exam General: Cooperative and healthy appearing Nutritional Appearance: Well nourished Orientation/consciousness: Patient oriented x3 Limitations: No limitations Head: Normal to inspection General: Appearance normal, both eyes and all related structures Neck: Normal visual inspection Chest: Normal palpation of entire chest wall Respiratory: Normal respiratory effort Neurology: Patient oriented x3 Results - Labs: Previous elevated blood glucose levels Plan 1. Obesity - Increase physical activity if comfortable. - Adjust diet for weight management. 2. Peripheral Neuropathy - Maintain podiatric follow-up. 3. Benign Prostatic Hyperplasia - Check PSA levels. 4. Urinary Frequency/Urgency - Assess potential causes, including BPH and glucose levels. 5. Atrial Fibrillation - Maintain Eliquis regimen. 6. Essential Hypertension - Continue metoprolol therapy. 7. Status Post Knee Replacements - Monitor for discomfort. Discussion Notes I discussed with Mr. Freitas his primary concerns regarding weight management and urinary symptoms. We explored the possibility that his BPH and slightly elevated sugar levels might contribute to his urinary frequency and urgency. I recommended checking his PSA levels and retesting his glucose. We talked about increasing his physical activity gradually to avoid discomfort in his knees, attributed partly to his obesity and history of replacements. We will continue his current medications, including Eliquis and Metoprolol. I confirmed no additional refills were necessary at this time and discussed the management strategies should any complications arise. Patient Instructions - Increase your physical activity as much as is comfortable with your knees. - Look at your diet and try to make healthy choices to help lose weight. - Continue taking your medications as prescribed. - Follow up for blood work and PSA test as planned. - Pay attention to any changes in your urination patterns and report any new symptoms. - Come back for a follow-up visit in six months or sooner if needed. Orders: Orders Lipid Panel Today E66.9 - Obesity, unspecified, I48.91 - Unspecified atrial fibrillation Complete Blood Count no Diff Today E66.9 - Obesity, unspecified, I48.91 - Unspecified atrial fibrillation Hemoglobin A1c Today E66.9 - Obesity, unspecified, I48.91 - Unspecified atrial fibrillation Liver Panel Today E66.9 - Obesity, unspecified, I48.91 - Unspecified atrial fibrillation Basic Metabolic Panel Today E66.9 - Obesity, unspecified, I48.91 - Unspecified atrial fibrillation Thyroid Stimulating Hormone Today E66.9 - Obesity, unspecified, I48.91 - Unspecified atrial fibrillation UA and rflx microscopic Today E66.9 - Obesity, unspecified, I48.91 - Unspecified atrial fibrillation
[2024-09-12 11:33] VITALS: BP 130/82; PULSE 77; TEMP 36.1; O2SAT 96; BMI 31.7
--- OUTSIDE RECORDS SUMMARY | 2024-09-12 12:22 | XMS_ITS | Patient Health Record ---
Author Organization [facility] Address [address] [place] [address] Care Team Providers Care Manager Transmission Name Role Phone Rufino Barbosa MD Primary Care Provider Michael Adames Unavailable [phone] Allergies No Known Allergies Reason For Referral No Information Medications Medication SIG (Take, Route, Frequency, Duration) Notes Start Date End Date Status Ammonium Lactate 12 % 1 application Exte rnally to affected areas of skin to feet except for between the toes Twice a day for 30 days Active Metoprolol Succinate 50 MG 1 capsule Ora lly Once a day Active eliquis 5 mg Active Social History Tobacco Use: Social History Observation Description Date Details (start date - stop date) Never Smoker NA - NA Alcohol Screen Question Answer Notes Did you have a drink contain ing alcohol in the past year? Yes How often did you have a dri nk containing alcohol in the past year? Monthly or less (1 point) Points 1 Interpretation Negative Tobacco use other than smoking: Question Answer Notes Are you an other tobacco user? 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 confirmed Response to treatment, Nonapplicable Vital Signs Blood pressure diastolic 70 mm Hg 07/23/2024 Height 6ft in 07/23/2024 Blood pressure systolic 135 mm Hg 07/23/2024 Weight 325 lbs 07/23/2024 BMI 44.07 kg/m2 07/23/2024 Procedures Procedure Date Ordered Date Performed Result Body Sit e 30810-QEGRQGM NAIL, 6 OR MORE 10/28/2023 N/A 85947-JWPP SKIN LESIONS, OVER 4 10/28/2023 N/A 45214-BNLKSWV NAIL, 6 OR MORE 01/13/2024 N/A 76373-HNIA SKIN LESIONS, OVER 4 01/13/2024 N/A 91130-ABSQFWS NAIL, 6 OR MORE 04/23/2024 N/A 31465-UVWE SKIN LESIONS, OVER 4 04/23/2024 N/A 02649-NJQQRZF NAIL, 6 OR MORE 07/19/2024 N/A 58272-VJBP SKIN LESIONS, OVER 4 07/19/2024 N/A 59732- Debride <25 sq cm 07/23/2024 N/A Encounters Encounter Location Date Provider Diagnosis [address] [address] 10/28/2023 Michael Cottrell Atherosclerosis of n ative artery of both lower extremities, with unspecified presence of clinical manifestation I70.203 ; Tinea unguium B35.1 ; Pain in right toe(s) M79.674 ; Pain in left toe(s) M79.675 ; Other hammer toe(s) (acquired), right foot M20.41 ; Arthritis of joint of lesser toe, right M19.071 ; Other hammer toe(s) (acquired), left foot M20.42 ; Arthritis of joint of lesser toe, left M19.072 ; Subluxation of metatarsophalangeal joint of toe, initial encounter S93.149A and Neuropathy G62.[address] [address] 01/13/2024 Michael Cottrell Atherosclerosis of n ative artery of both lower extremities, with unspecified presence of clinical manifestation I70.203 ; Tinea unguium B35.1 ; Pain in right toe(s) M79.674 ; Pain in left toe(s) M79.675 and Xerosis of skin L85.[address] [facility] [address] [address] 04/23/2024 Michael Cottrell Atherosclerosis of n ative artery of both lower extremities, with unspecified presence of clinical manifestation I70.203 ; Tinea unguium B35.1 ; Pain in right toe(s) M79.674 ; Pain in left toe(s) M79.675 and Xerosis of skin L85.[address] [address] 07/19/2024 Michael Cottrell Atherosclerosis of n ative artery of both lower extremities, with unspecified presence of clinical manifestation I70.203 ; Tinea unguium B35.1 ; Pain in right toe(s) M79.674 and Pain in left toe(s) M79.[address] [address] 07/23/2024 Michael Cottrell Ischemic ulcer of le ft heel, limited to breakdown of skin L97.[address] [address] 07/23/2024 Michael Cottrell Assessments Encounter Date Diagnosis (ICD Code) Assessment Notes Treatment Notes Treatment Clinical Notes Section Notes 10/28/2023 Tinea unguium (ICD-1 0 - B35.1) 10/28/2023 Atherosclerosis of [place] artery of both lower extremities, with unspecified presence of clinical manifestation (ICD-10 - I70.203) 01/13/2024 Tinea unguium (ICD-1 0 - B35.1) 01/13/2024 Atherosclerosis of [place] artery of both lower extremities, with unspecified presence of clinical manifestation (ICD-10 - I70.203) Q7(A), Q8(2B), Q9(1B,2C) 04/23/2024 Tinea unguium (ICD-1 0 - B35.1) 04/23/2024 Atherosclerosis of [place] artery of both lower extremities, with unspecified presence of clinical manifestation (ICD-10 - I70.203) Q7(A), Q8(2B), Q9(1B,2C) 07/19/2024 Tinea unguium (ICD-1 0 - B35.1) 07/19/2024 Atherosclerosis of [place] artery of both lower extremities, with unspecified presence of clinical manifestation (ICD-10 - I70.203) Q7(A), Q8(2B), Q9(1B,2C) 07/23/2024 Ischemic ulcer of le ft heel, limited to breakdown of skin (ICD-10 - L97.421) Response to treatment, Nonapplicable Patient Educated with: WOUND CARE INSTRUCTIONS .pdf (WOUND CARE INSTRUCTIONS .pdf) 07/19/2024 Pain in right toe(s) (ICD-10 - M79.674) 04/23/2024 Pain in right toe(s) (ICD-10 - M79.674) 01/13/2024 Pain in right toe(s) (ICD-10 - M79.674) 10/28/2023 Pain in right toe(s) (ICD-10 - M79.674) 10/28/2023 Pain in left toe(s) (ICD-10 - M79.675) 04/23/2024 Pain in left toe(s) (ICD-10 - M79.675) 01/13/2024 Pain in left toe(s) (ICD-10 - M79.675) 07/19/2024 Pain in left toe(s) (ICD-10 - M79.675) 04/23/2024 Xerosis of skin (ICD-10 - L85.3) 01/13/2024 Xerosis of skin (ICD-10 - L85.3) 10/28/2023 Other hammer toe(s) (acquired), right foot (ICD-10 - M20.41) 10/28/2023 Arthritis of joint o f lesser toe, right (ICD-10 - M19.071) 10/28/2023 Other hammer toe(s) (acquired), left foot (ICD-10 - M20.42) 10/28/2023 Arthritis of joint o f lesser toe, left (ICD-10 - M19.072) 10/28/2023 Subluxation of metatarsophalangeal joint of toe, initial encounter (ICD-10 - S93.149A) 10/28/2023 Neuropathy (ICD-10 - G62.9) Plan Of Treatment Pending Test Test Name Order Date 35232-NWELXRP NAIL, 6 OR MORE 10/28/2023 10585-ONHJLPI NAIL, 6 OR MORE 01/13/2024 17025-YZFKXAD NAIL, 6 OR MORE 04/23/2024 32400-WKTSAXC NAIL, 6 OR MORE 07/19/2024 99636- Debride <25 sq cm 07/23/2024 54252-BVQW SKIN LESIONS, OVER 4 07/20/19 23270-UGLU SKIN LESIONS, OVER 4 04/23/19 95813-KQWR SKIN LESIONS, OVER 4 01/13/20 05788-FIEE SKIN LESIONS, OVER 4 10/28/19 Next Appt Details Provider Name:Michael Cottrell , 10/17/2024 02:30:00 PM, [facility], [address], [place], [address], Insurance Providers Payer Name Payer Address Payer Phone Subscriber Number Group Number Insured Name Patient Relationship to Insured Coverage Start Date Coverage End Date Medicare National [employer] [address] [place] [address] [id number] Kam Freitas Self - patient is the insured [employer] [address] [place] [address] [id number] Kam Freitas Self - patient is the insured Medical (General) History Medical History History ICD Code Back,Hip,and Knee pain covid-19 Numbness Measles Mumps Chicken pox Joint implants/screws Bone implants/screws Surgical History Surgery Date(Month/Year) hernia 2001 knee replacement x2 2017
== END 2024-09-12 11:49 | disposition home or self-care (01) ==
PROVIDERS: PCP Internal Medicine; Visit Provider Internal Medicine
DX: I48.91 Unspecified atrial fibrillation (principal); E66.9 Obesity, unspecified

== ENCOUNTER → 2024-09-12 11:25 | Outpatient (BNVA) | payer MEDICARE, SELFPAY | PROVIDERS: PCP Internal Medicine; Visit Provider Internal Medicine | DX: Z13.89 Encounter for screening for other disorder (principal) | CPT/HCPCS: 99202 ==

== ENCOUNTER 2024-09-12 11:54 | Outpatient (REF) | payer MEDICARE, SELFPAY ==
[2024-09-12 12:34] LABS: Hematocrit 51.1 % (42.0-52.0); Hemoglobin 17.4 g/dl (14.0-18.0); Mean Corpuscular HGB Conc 34.1 g/dl (31.0-36.0); Mean Corpuscular Hemoglobin 32.7 pg (27.0-33.0); Mean Corpuscular Volume 96.1 fL (80.0-98.0); Mean Platelet Volume 11.2 fL (9.4-12.4); Platelet Count 167 X10*3/uL (160-400); Red Blood Count 5.32 X10*6/uL (4.60-5.80); Red Cell Distribution Width 12.8 % (11.0-16.0); White Blood Count 7.3 X10*3/uL (4.8-10.8)
[2024-09-12 12:42] LABS: Estimated Average Glucose 137 mg/dL; Hemoglobin A1c % 6.4 % (<6.0)
[2024-09-12 13:34] LABS: Appearance Urine Clear; Color Urine Dark Yellow; Glucose Urine UA Negative (Negative); Leukocyte Esterase Urine Negative (Negative); Nitrite Urine Negative (Negative); Specific Gravity - Urine 1.025 (1.005-1.025); UMIC TRIGGER UA YES; Urine Blood Trace (Negative); Urine Ketones Trace mg/dL (Negative); Urine Protein 30 (1+) mg/dL (Neg-Trace)
[2024-09-12 13:40] LABS: Bacteria Urine None Seen (None Seen); Hyaline Casts Urine 0-2 /LPF (0-2); Squamous Epithelial Cell Urine 0-2 /HPF (0-2); WBC Urine 0-5 /HPF (0-5)
[2024-09-12 15:20] LABS: Anion Gap 9 (12-20)
[2024-09-12 15:25] LABS: Alanine Aminotransferase 34 U/L (0-40); Albumin Level 3.6 g/dL (3.5-5.0); Alkaline Phosphatase 59 U/L (39-117); Aspartate Amino Transferase 26 U/L (5-37); Bilirubin Direct 0.2 mg/dL (0.0-0.5); Bilirubin Total 0.8 mg/dL (0.0-1.0); Blood Urea Nitrogen 15 mg/dL (9-16); Calcium 9.2 mg/dL (8.4-10.2); Carbon Dioxide 31 mmol/L (22-29); Chloride 105 mmol/L (96-108); Cholesterol 191 mg/dL (<200); Estimated Glomerular Filt Rate > 60; Glucose Random 113 mg/dL (60-115); HDL Cholesterol 45 mg/dL (>40); LDL Cholesterol Calculated 103 mg/dL (<100); Potassium 4.7 mmol/L (3.3-5.1); Sodium 140 mmol/L (135-145); Total Protein 6.8 g/dL (6.5-8.0); Triglycerides 218 mg/dL (<150)
== END 2024-09-12 11:55 | disposition home or self-care (01) ==
LOC: HO.10HDL 11:54
PROVIDERS: Visit Provider Internal Medicine
DX: N40.1 Benign prostatic hyperplasia with lower urinary tract symptoms (principal); R35.0 Frequency of micturition; R39.15 Urgency of urination; E66.9 Obesity, unspecified; Z68.31 Body mass index [BMI] 31.0-31.9, adult; I48.91 Unspecified atrial fibrillation; I10 Essential (primary) hypertension; G62.9 Polyneuropathy, unspecified; Z79.01 Long term (current) use of anticoagulants; Z79.899 Other long term (current) drug therapy
CPT/HCPCS: 36415; 80048; 80061; 80076; 81001; 83036; 84443; 85027; 99202

== ENCOUNTER 2025-03-13 11:55 | Outpatient (REF) | payer MEDICARE, SELFPAY ==
[2025-03-13 13:44] LABS: Hematocrit 49.5 % (42.0-52.0); Hemoglobin 17.0 g/dl (14.0-18.0); Mean Corpuscular HGB Conc 34.3 g/dl (31.0-36.0); Mean Corpuscular Hemoglobin 32.7 pg (27.0-33.0); Mean Corpuscular Volume 95.2 fL (80.0-98.0); NRBC Abs Auto 0.000 X10*3/uL (0.0-0.012); NRBC Pct Auto 0.0 /100WBC (0.0-0.2); Platelet Count 188 X10*3/uL (160-400); Red Blood Count 5.20 X10*6/uL (4.60-5.80); White Blood Count 7.8 X10*3/uL (4.8-10.8)
[2025-03-13 14:37] LABS: Anion Gap 13 (12-20); Blood Urea Nitrogen 18 mg/dL (9-16); Calcium 9.0 mg/dL (8.4-10.2); Carbon Dioxide 26 mmol/L (22-29); Chloride 106 mmol/L (96-108); Estimated Glomerular Filt Rate > 60; Potassium 4.6 mmol/L (3.3-5.1); Sodium 140 mmol/L (135-145)
== END 2025-03-13 11:56 | disposition home or self-care (01) ==
LOC: HO.10HDL 11:55
PROVIDERS: Referring Provider Internal Medicine Interventional Cardiology; Visit Provider Physician Assistant Medical
DX: R73.03 Prediabetes (principal); I48.91 Unspecified atrial fibrillation
CPT/HCPCS: 36415; 80048; 83036; 85027